=== PATIENT | male | born 1965 | race Caucasian/White ===

== ENCOUNTER 2018-04-25 11:44 | Inpatient (IN) | payer OTHER ==
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
[2018-04-25] MEDS ORDERED: IBUPROFEN 400 MG TABLET (FP) PO ONE (12:16)
--- NOTE | 2018-04-25 12:25 | PDOC ---
Attending Attestation - HPI HPI: 04/25/18 12:30 The patient is a 53 year old male, with a significant past medical history of left hemiparesis s/p TBI, frequent falls (last fall on 04/09/18), depression, who presents to the emergency department with elbow pain this morning. He denies any trauma or falls. He denies swelling or bruising. He states he can range thew elbow, but reports pain when he uses his cane. The patient denies chest pain, shortness of breath, headache and dizziness. The patient denies fever, chills, nausea, vomit, diarrhea and constipation. The patient denies dysuria, frequency, urgency and hematuria. Allergies: NKDA PCP - Dr. Pedrito Vyas - Physicial Exam PE: 04/25/18 12:30 GENERAL: The patient is in no acute distress. HEAD: Normal with no signs of trauma. EYES: PERRLA, EOMI, sclera anicteric, conjunctiva clear. ENT: Ears normal, nares patent, oropharynx clear without exudates. Moist mucous membranes. NECK: Normal range of motion, supple without lymphadenopathy, JVD, or masses. LUNGS: Breath sounds equal, clear to auscultation bilaterally. No wheezes, and no crackles. HEART:Regular rate and rhythm, normal S1 and S2 without murmur, rub or gallop. ABDOMEN: Soft, nontender, normoactive bowel sounds. No guarding, no rebound. No masses palpable. EXTREMITIES: Normal range of motion, no edema. No clubbing or cyanosis. No erythema, or tenderness. NEUROLOGICAL: Cranial nerves II through XII grossly intact. Normal speech. No focal neurological deficits. MUSCULOSKELETAL: (+) right elbow pain at the end of extension, mild lateral epicondyle ttp. No swelling or erythema. Back non-tender to palpation, no CVA tenderness. No joint edema. SKIN: Warm, Dry, normal turgor, no rashes or lesions noted. - Medical Decision Making 04/25/18 12:30 Documentation prepared by Tamra Soto, acting as biomedical engineer for Evelin David MD <Tamra Soto - Last Filed: 04/25/18 12:48> - Resident Resident Name: Carter Estrella - ED Attending Attestation I have performed the following: I have examined & evaluated the patient, The case was reviewed & discussed with the resident, I agree w/resident's findings & plan, Exceptions are as noted - Medical Decision Making 04/25/18 15:57 Xray, no occult fracture Pt seen by Ortho Will discharge to home Follow up with Ortho as an outpatient 04/25/18 17:50 Pt refusing to leave the hospital Pt girlfriend called, yelled at nurse stating that the patient can not be sent home because he is having frequent falls and no longer can ambulate with his cane given his right elbow pain Will contact PMD PT referral EKG - Twelve-lead EKG was performed and reviewed by me. There is normal sinus rhythm with a normal rate. The axis is normal. The intervals are normal. There are no ST or T wave abnormalities. Impression: Normal twelve-lead EKG 04/25/18 18:35 Laboratory Tests 04/25/18 17:47 WBC 8.0 Hgb 14.6 Hct 40.2 Plt Count 219 Pt placed on observation to Dr Price PT eval? <Evelin David - Last Filed: 04/27/18 07:46>
[2018-04-25] MEDS ORDERED: KETOROLAC TROMETHAMINE 30 MG/1 ML VIAL IM ONE (13:50)
[2018-04-25] MEDS ORDERED: KETOROLAC TROMETHAMINE 30 MG/1 ML VIAL ONE (14:15)
--- NOTE | 2018-04-25 15:58 | CONSULT ---
Consult - text type - Consultation Consultation Note: ORTHOPEDIC SURGERY CONSULTATION NOTE Department of Orthopedic Surgery HISTORY OF PRESENT ILLNESS Gideon Higuera is a 53 year old male with a history of TBI (1998) an left sided hemiparesis who presents to [facility] ED after multiple falls. The orthopedic service was consulted for right elbow pain. The patient states he has had multiple falls, most recently a week ago. The patient notes sharp pain to his right elbow. Denies any other injuries. Denies numbness, tingling or other constitutional complaints. Denies tobacco use, drug use, alcohol abuse. The patient lives alone and uses cane to ambulate at baseline. FAMILY HISTORY Unknown REVIEW OF SYMPTOMS A twelve-point review of systems was performed and was negative except as noted in HPI. PHYSICAL EXAM Constitutional: Alert and oriented to person, place, and time. Right Upper Extremity: Skin warm, dry, and intact; no lesions, rashes or ulcers noted. No atrophy noted. No masses or effusions noted. Mild tenderness to palpation laterally over extensor muscle tendons; nontender throughout rest of extremity. Full passive and active ROM, free from pain. Joints stable with no pathologic laxity. M/R/U/MSK/AX motor intact; SILT distally except for some numbness in his right index finger tip; 2+ radial pulses; Cap refill brisk. Left Upper Extremity: No tenderness to palpation. Limited range of motion of shoulder, elbow, wrist and fingers, free from pain. SILT distally; 2+ radial pulses; Cap refill brisk. Right Lower Extremity: No tenderness to palpation. No cords or calf tenderness. No significant calf/ankle edema. Full passive and active ROM, free from pain. EHL/TA/GS motor intact; SILT distally; 2+ DP pulses; Cap refill brisk. Left Lower Extremity: No tenderness to palpation. Limited range of motion of shoulder, elbow, wrist and fingers, free from pain. SILT distally; 2+ radial pulses; Cap refill brisk. 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 They demonstrate no fracture or dislocation. ASSESSMENT AND PLAN Gideon Higuera is a 53 year old male with history of TBI and left sided hemiparesis presenting with right sided elbow pain. We have reviewed the imaging and clinical findings in detail, as well as their potential implications. His pain is likely due to a muscle strain. There is no fracture or pathologic laxity on exam. No acute orthopedic intervention at this time. We can obtain further imaging as an outpatient if symptoms persist. All questions were answered. Thank you for involving our team in the care of this patient. Please have patient follow up in our office in 1-2 weeks [phone]. Hernandez Montemayor, DO Orthopedic Surgery
[2018-04-25 18:00] LABS: BASO % 0.7 % (0-2.0); EOS % 1.4 % (0-4.5); HEMATOCRIT 40.2 % (35.4-49); HEMOGLOBIN 14.6 GM/dL (11.7-16.9); LYMPH % 19.6 % (8-40); MCH 32.9 pg (25.7-33.7); MCHC 36.4 g/dl (32.0-35.9); MEAN CELL VOLUME 90.6 fl (80-96); MEAN PLT VOLUME 7.8 fl (7.5-11.1); MONO % 5.1 % (3.8-10.2); NEUT % 73.2 % (42.8-82.8); PLATELET COUNT 219 K/MM3 (134-434); RBC 4.43 M/mm3 (4.00-5.60); RDW 12.7 % (11.9-15.9)
[2018-04-25 19:14] LABS: ALBUMIN 3.7 g/dl (3.4-5.0); ALK PHOS 62 U/L (45-117); ANION GAP 7 MMOL/L (8-16); BILIRUBIN,TOTAL 0.8 mg/dL (0.2-1); BLOOD UREA NITROGEN 16 mg/dL (7-18); CALCIUM 8.7 mg/dL (8.5-10.1); CHLORIDE 112 mmol/L (98-107); CO2 25 mmol/L (21-32); CREATININE 1.1 mg/dL (0.55-1.3); GLUCOSE,RANDOM 95 mg/dL (74-106); POTASSIUM 3.9 mmol/L (3.5-5.1); SGOT/AST 18 U/L (15-37); SGPT/ALT 30 U/L (13-61); SODIUM 143 mmol/L (136-145); TOT PROT 6.6 g/dl (6.4-8.2)
[2018-04-26 01:17] VITALS: BMI 30.3
[2018-04-26] MEDS: KETOROLAC TROMETHAMINE 30 MG/1 ML VIAL IVPUSH SCH ×3 (02:19→17:05)
[2018-04-26] MEDS: BACLOFEN 10 MG TABLET (FP) PO SCH ×3 (05:29→21:33)
[2018-04-26] MEDS: PARoxetine HCL 20 MG TABLET (FP) PO SCH (09:45)
[2018-04-26] MEDS: HEPARIN NA (PORCINE) 5,000 UNITS/ML 1ML VIAL SQ SCH ×2 (09:46→21:33)
[2018-04-26] MEDS: diazePAM 5 MG TABLET PO PRN (09:53)
--- NOTE | 2018-04-26 13:04 | HP ---
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) Cardiovascular: Yes: Hyperlipdemia - Smoking History Smoking history: Never smoked Have you smoked in the past 12 months: No Aproximately how many cigarettes per day: 0 - Alcohol/Substance Use Hx Alcohol Use: No Home Medications - Allergies Allergies/Adverse Reactions: Allergies Allergy/AdvReac Type Severity Reaction Status Date / Time No Known Allergies Allergy Verified 04/25/18 12:14 - Home Medications Home Medications: Ambulatory Orders Atorvastatin Ca [Lipitor] 20 mg PO HS 03/25/15 Baclofen 10 mg PO TID 03/25/15 Divalproex [Depakote -] 125 mg PO HS 03/25/15 Paroxetine HCl [Paxil] 20 mg PO DAILY 03/25/15 Diazepam [Valium -] 5 mg PO BID PRN #14 tablet 03/31/15 Donepezil HCl [Aricept] 10 mg PO HS 04/26/18 Family Disease History - Family Disease History Family Disease History: Other: Father ( h/o alcoholism) Physical Examination Vital Signs: Vital Signs Temperature 99 F 04/26/18 09:00 Pulse Rate 56 L 04/26/18 09:00 Respiratory Rate 20 04/26/18 09:00 Blood Pressure 123/74 04/26/18 09:00 O2 Sat by Pulse Oximetry (%) 98 04/26/18 01:10 Labs: CBC, BMP 04/25/18 17:47 04/25/18 17:47
--- NOTE | 2018-04-26 16:19 | EKG ---
Test Reason : Blood Pressure : / mmHG Vent. Rate : 061 BPM Atrial Rate : 061 BPM P-R Int : 148 ms QRS Dur : 096 ms QT Int : 400 ms P-R-T Axes : 026 -25 011 degrees QTc Int : 402 ms POOR DATA QUALITY, INTERPRETATION MAY BE ADVERSELY AFFECTED NORMAL SINUS RHYTHM NORMAL ECG WHEN COMPARED WITH ECG OF 26-MAR-2015 00:29, NO SIGNIFICANT CHANGE WAS FOUND Confirmed by KRYS WELLINGTON, FREDI ([id number]) on 04/26/2018 4:19:26 PM Referred By: Confirmed By:FREDI MARCANO MD
[2018-04-26] MEDS ORDERED: PT OWN MED DRAWER 7, Y5N ONE (21:13)
[2018-04-26] MEDS: DONEPEZIL HCL 10 MG TABLET (FP) PO SCH (21:33)
[2018-04-26] MEDS: DIVALPROEX SODIUM 125 MG TABLET E.C. PO SCH (21:33)
[2018-04-26] MEDS: ATORVASTATIN CA 20 MG TABLET (FP) PO SCH (21:33)
--- NOTE | 2018-04-26 21:41 | PN ---
Progress Note (short form) - Note Progress Note: ORTHOPEDIC SURGERY PROGRESS NOTE Department of Orthopedic Surgery SUBJECTIVE No acute events overnight. Complains of right elbow pain. Denies chest pain, shortness of breath, or calf pain. No nausea or vomiting. Tolerating oral intake. Pain control improving. Intake & Output 04/24/18 04/25/18 04/26/18 23:59 23:59 23:59 Intake Total 870 Output Total 500 Balance 370 Intake: Oral 870 Output: Urine 500 Void 500 Other: Voiding Method Urinal Bowel Movement No # Bowel Movements 0 Weight 214 lb 211 lb 4 oz Height 5 ft 10 in 5 ft 10 in Body Mass Index (BMI) 30.7 30.3 Weight Measurement Method Built in [facility] Active Medications Generic Name Dose Route Start Last Admin Trade Name Freq PRN Reason Stop Dose Admin Atorvastatin Calcium 20 mg 04/26/18 22:00 04/26/18 21:33 Lipitor - PO 20 mg HS JULY Administration Baclofen 10 mg 04/26/18 06:00 04/26/18 21:33 Lioresal - PO 10 mg TID JULY Administration Diazepam 5 mg 04/26/18 01:46 04/26/18 09:53 Valium - PO 5 mg Q12H PRN Administration MUSCLE SPASMS Divalproex Sodium 125 mg 04/26/18 22:00 04/26/18 21:33 Depakote - PO 125 mg HS JULY Administration Donepezil HCl 10 mg 04/26/18 22:00 04/26/18 21:33 Aricept - PO 10 mg HS JULY Administration Heparin Sodium (Porcine) 5,000 unit 04/26/18 10:00 04/26/18 21:33 Heparin - SQ 5,000 unit BID JULY Administration Ketorolac Tromethamine 30 mg 04/26/18 02:00 04/26/18 17:05 Toradol Injection - IVPUSH 05/01/18 01:59 30 mg Q8H-IV JULY Administration Paroxetine HCl 20 mg 04/26/18 10:00 04/26/18 09:45 Paxil - PO 20 mg DAILY JULY Administration Vital Signs (last) Temp Pulse Resp BP Pulse Ox 98.3 F 58 L 19 101/54 L 98 04/26/18 18:00 04/26/18 18:00 04/26/18 18:00 04/26/18 18:00 04/26/18 01:10 Laboratory 04/25/18 17:47 04/25/18 17:47 PHYSICAL EXAMINATION General: Alert, oriented, cooperative and no distress. Right Upper Extremity: Skin intact, no lesions, rashes or ulcers noted. Muscle mass equal and symmetric to contralateral side. No atrophy noted. No masses or effusions noted. Tenderness over lateral elbow extensor origin. Full passive and active ROM, free from pain. M/R/U/MSK/AX motor intact; SILT distally except for numbness over index finger tip; 2+ radial pulses; Cap refill brisk. DVT Exam: No evidence of DVT seen on physical exam; No cords or calf tenderness ; No significant calf/ankle edema. ASSESSMENT AND PLAN Gideon Higuera is a 53 year old male with history of TBI and left sided hemiparesis presenting with right sided elbow pain. His pain is likely due to a muscle strain or overuse injury. There is no fracture or pathologic laxity on exam. - No acute orthopedic intervention at this time. We can obtain further imaging as an outpatient if symptoms persist. - Recommend he follow up with neurologist as outpatient to evaluate right index finger numbness. He has no signs of carpal tunnel syndrome. - Physical therapy - DVT prophylaxis - Pain control All questions were answered. Thank you for involving our team in the care of this patient. Please have patient follow up in our office in 1-2 weeks [phone]. Hernandez Montemayor, DO Orthopedic Surgery
[2018-04-27] MEDS: KETOROLAC TROMETHAMINE 30 MG/1 ML VIAL IVPUSH SCH ×3 (02:03→18:48)
[2018-04-27] MEDS: diazePAM 5 MG TABLET PO PRN (04:24)
[2018-04-27] MEDS: BACLOFEN 10 MG TABLET (FP) PO SCH ×3 (06:45→21:51)
[2018-04-27 07:37] LABS: BASO % 0.7 % (0-2.0); EOS % 2.2 % (0-4.5); HEMATOCRIT 42.9 % (35.4-49); HEMOGLOBIN 14.5 GM/dL (11.7-16.9); LYMPH % 33.8 % (8-40); MCH 30.6 pg (25.7-33.7); MCHC 33.8 g/dl (32.0-35.9); MEAN CELL VOLUME 90.7 fl (80-96); MEAN PLT VOLUME 7.7 fl (7.5-11.1); MONO % 7.8 % (3.8-10.2); NEUT % 55.5 % (42.8-82.8); PLATELET COUNT 197 K/MM3 (134-434); RBC 4.73 M/mm3 (4.00-5.60); RDW 12.9 % (11.9-15.9)
[2018-04-27 08:02] LABS: ALBUMIN 3.6 g/dl (3.4-5.0); ALK PHOS 62 U/L (45-117); ANION GAP 7 MMOL/L (8-16); BILIRUBIN,TOTAL 0.7 mg/dL (0.2-1); BLOOD UREA NITROGEN 26 mg/dL (7-18); CALCIUM 8.8 mg/dL (8.5-10.1); CHLORIDE 110 mmol/L (98-107); CO2 26 mmol/L (21-32); GLUCOSE,RANDOM 85 mg/dL (74-106); POTASSIUM 4.1 mmol/L (3.5-5.1); SGOT/AST 16 U/L (15-37); SGPT/ALT 31 U/L (13-61); SODIUM 143 mmol/L (136-145); TOT PROT 6.7 g/dl (6.4-8.2)
[2018-04-27] MEDS: HEPARIN NA (PORCINE) 5,000 UNITS/ML 1ML VIAL SQ SCH ×2 (10:04→21:51)
[2018-04-27] MEDS: PARoxetine HCL 20 MG TABLET (FP) PO SCH (10:04)
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
--- NOTE | 2018-04-27 19:27 | PN ---
Progress Note, Physician - Current Medication List Current Medications: Active Medications Atorvastatin Calcium (Lipitor -) 20 mg PO HS [facility] Last Admin: 04/26/18 21:33 Dose: 20 mg Baclofen (Lioresal -) 10 mg PO TID [facility] Last Admin: 04/27/18 14:18 Dose: 10 mg Diazepam (Valium -) 5 mg PO Q12H PRN PRN Reason: MUSCLE SPASMS Last Admin: 04/27/18 04:24 Dose: 5 mg Divalproex Sodium (Depakote -) 125 mg PO HS [facility] Last Admin: 04/26/18 21:33 Dose: 125 mg Donepezil HCl (Aricept -) 10 mg PO HS [facility] Last Admin: 04/26/18 21:33 Dose: 10 mg Heparin Sodium (Porcine) (Heparin -) 5,000 unit SQ BID [facility] Last Admin: 04/27/18 10:04 Dose: 5,000 unit Ketorolac Tromethamine (Toradol Injection -) 30 mg IVPUSH Q8H-IV [facility] Stop: 05/01/18 01:59 Last Admin: 04/27/18 18:48 Dose: 30 mg Paroxetine HCl (Paxil -) 20 mg PO DAILY [facility] Last Admin: 04/27/18 10:04 Dose: 20 mg - Objective Vital Signs: Vital Signs Temperature 98.1 F 04/27/18 14:00 Pulse Rate 62 04/27/18 14:00 Respiratory Rate 18 04/27/18 14:00 Blood Pressure 112/55 L 04/27/18 14:00 O2 Sat by Pulse Oximetry (%) 98 04/27/18 08:00 Labs: CBC, BMP 04/27/18 06:30 04/27/18 06:30
[2018-04-27] MEDS ORDERED: PT OWN MED DRAWER 7, Y5N ONE (21:47)
[2018-04-27] MEDS: ATORVASTATIN CA 20 MG TABLET (FP) PO SCH (21:51)
[2018-04-27] MEDS: DIVALPROEX SODIUM 125 MG TABLET E.C. PO SCH (21:52)
[2018-04-27] MEDS: DONEPEZIL HCL 10 MG TABLET (FP) PO SCH (21:52)
[2018-04-28] MEDS: KETOROLAC TROMETHAMINE 30 MG/1 ML VIAL IVPUSH SCH ×3 (02:21→18:42)
[2018-04-28] MEDS: BACLOFEN 10 MG TABLET (FP) PO SCH ×3 (06:30→21:30)
[2018-04-28] MEDS: diazePAM 5 MG TABLET PO PRN (06:38)
[2018-04-28] MEDS: PARoxetine HCL 20 MG TABLET (FP) PO SCH (09:12)
[2018-04-28] MEDS: HEPARIN NA (PORCINE) 5,000 UNITS/ML 1ML VIAL SQ SCH ×2 (09:12→21:30)
--- NOTE | 2018-04-28 15:27 | PN ---
Progress Note (short form) - Note Progress Note: ORTHOPEDIC SURGERY PROGRESS NOTE Department of Orthopedic Surgery SUBJECTIVE No acute events overnight. No complaints. Denies chest pain, shortness of breath , or calf pain. No nausea or vomiting. Tolerating oral intake. Pain control improving. Intake & Output 04/26/18 04/27/18 04/28/18 23:59 23:59 23:59 Intake Total 870 950 Output Total 500 800 Balance 370 150 Intake: Oral 870 950 Output: Urine 500 800 Void 500 800 Other: Voiding Method Urinal Urinal Urinal Bowel Movement No Yes # Bowel Movements 0 0 Weight 211 lb 4 oz Height 5 ft 10 in Body Mass Index (BMI) 30.3 Weight Measurement Method [facility] Active Medications Generic Name Dose Route Start Last Admin Trade Name Freq PRN Reason Stop Dose Admin Atorvastatin Calcium 20 mg 04/26/18 22:00 04/27/18 21:51 Lipitor - PO 20 mg HS JULY Administration Baclofen 10 mg 04/26/18 06:00 04/28/18 14:09 Lioresal - PO 10 mg TID JULY Administration Diazepam 5 mg 04/26/18 01:46 04/28/18 06:38 Valium - PO 5 mg Q12H PRN Administration MUSCLE SPASMS Divalproex Sodium 125 mg 04/26/18 22:00 04/27/18 21:52 Depakote - PO 125 mg HS JULY Administration Donepezil HCl 10 mg 04/26/18 22:00 04/27/18 21:52 Aricept - PO 10 mg HS JULY Administration Heparin Sodium (Porcine) 5,000 unit 04/26/18 10:00 04/28/18 09:12 Heparin - SQ 5,000 unit BID JULY Administration Ketorolac Tromethamine 30 mg 04/26/18 02:00 04/28/18 09:59 Toradol Injection - IVPUSH 05/01/18 01:59 30 mg Q8H-IV JULY Administration Paroxetine HCl 20 mg 04/26/18 10:00 04/28/18 09:12 Paxil - PO 20 mg DAILY JULY Administration Vital Signs (last) Temp Pulse Resp BP Pulse Ox 98.2 F 62 16 102/62 98 04/28/18 08:15 04/28/18 08:15 04/28/18 08:15 04/28/18 08:15 04/28/18 09:00 Laboratory 04/27/18 06:30 04/27/18 06:30 PHYSICAL EXAMINATION General: Alert, oriented, cooperative and no distress. Cervical Spine: + tenderness to palpation right paracervical muscles and trapezius. Pain with rotation to the right. Right Upper Extremity: Skin intact, no lesions, rashes or ulcers noted. Muscle mass equal and symmetric to contralateral side. No atrophy noted. No masses or effusions noted. Tenderness over lateral elbow extensor origin. Also has tenderness over right trapezius. Full passive and active ROM, free from pain. M/ R/U/MSK/AX motor intact; SILT distally except for numbness over index finger tip ; 2+ radial pulses; Cap refill brisk. DVT Exam: No evidence of DVT seen on physical exam; No cords or calf tenderness ; No significant calf/ankle edema. ASSESSMENT AND PLAN Gideon Higuera is a 53 year old male with history of TBI and left sided hemiparesis presenting with right sided neck and elbow pain. His pain is likely due to a muscle strain or overuse injury. There is no fracture or pathologic laxity on exam. - Appreciate neurology consult. The patient will obtain further testing and follow up with neurology as outpatient. - No acute orthopedic intervention at this time. Etiology of his pain is likely cervical in nature. Can obtain further imaging of elbow as outpatient if symptoms persist. - Physical therapy - DVT prophylaxis - Pain control All questions were answered. Thank you for involving our team in the care of this patient. Please have patient follow up in our office in 1-2 weeks . Hernandez Montemayor, DO Orthopedic Surgery
--- NOTE | 2018-04-28 18:12 | PN ---
Progress Note, Physician - Current Medication List Current Medications: Active Medications Atorvastatin Calcium (Lipitor -) 20 mg PO HS [facility] Last Admin: 04/27/18 21:51 Dose: 20 mg Baclofen (Lioresal -) 10 mg PO TID [facility] Last Admin: 04/28/18 14:09 Dose: 10 mg Diazepam (Valium -) 5 mg PO Q12H PRN PRN Reason: MUSCLE SPASMS Last Admin: 04/28/18 06:38 Dose: 5 mg Divalproex Sodium (Depakote -) 125 mg PO HS [facility] Last Admin: 04/27/18 21:52 Dose: 125 mg Donepezil HCl (Aricept -) 10 mg PO HS [facility] Last Admin: 04/27/18 21:52 Dose: 10 mg Heparin Sodium (Porcine) (Heparin -) 5,000 unit SQ BID [facility] Last Admin: 04/28/18 09:12 Dose: 5,000 unit Ketorolac Tromethamine (Toradol Injection -) 30 mg IVPUSH Q8H-IV [facility] Stop: 05/01/18 01:59 Last Admin: 04/28/18 09:59 Dose: 30 mg Paroxetine HCl (Paxil -) 20 mg PO DAILY [facility] Last Admin: 04/28/18 09:12 Dose: 20 mg - Objective Vital Signs: Vital Signs Temperature 98.7 F 04/28/18 15:24 Pulse Rate 64 04/28/18 15:24 Respiratory Rate 20 04/28/18 15:24 Blood Pressure 108/59 L 04/28/18 15:24 O2 Sat by Pulse Oximetry (%) 98 04/28/18 09:00 Labs: CBC, BMP 04/27/18 06:30 04/27/18 06:30
[2018-04-28] MEDS ORDERED: PT OWN MED DRAWER 7, Y5N ONE (21:19)
[2018-04-28] MEDS: DONEPEZIL HCL 10 MG TABLET (FP) PO SCH (21:28)
[2018-04-28] MEDS: DIVALPROEX SODIUM 125 MG TABLET E.C. PO SCH (21:29)
[2018-04-28] MEDS: ATORVASTATIN CA 20 MG TABLET (FP) PO SCH (21:31)
[2018-04-28] MEDS ORDERED: ACETAMINOPHEN 325 MG TABLET (FP) PO ONE (23:00)
[2018-04-29] MEDS: KETOROLAC TROMETHAMINE 30 MG/1 ML VIAL IVPUSH SCH ×3 (01:27→17:45)
[2018-04-29] MEDS: BACLOFEN 10 MG TABLET (FP) PO SCH ×3 (05:28→21:24)
[2018-04-29] MEDS: HEPARIN NA (PORCINE) 5,000 UNITS/ML 1ML VIAL SQ SCH ×2 (09:16→21:24)
[2018-04-29] MEDS: PARoxetine HCL 20 MG TABLET (FP) PO SCH (09:17)
[2018-04-29] MEDS ORDERED: diazePAM 5 MG TABLET PO PRN (12:42)
[2018-04-29] MEDS ORDERED: PT OWN MED DRAWER 7, Y5N ONE (21:13)
[2018-04-29] MEDS: DIVALPROEX SODIUM 125 MG TABLET E.C. PO SCH (21:24)
[2018-04-29] MEDS: ATORVASTATIN CA 20 MG TABLET (FP) PO SCH (21:24)
[2018-04-29] MEDS: DONEPEZIL HCL 10 MG TABLET (FP) PO SCH (21:24)
--- NOTE | 2018-04-29 23:37 | PN ---
Progress Note, Physician History of Present Illness: No new complaints - Current Medication List Current Medications: Active Medications Atorvastatin Calcium (Lipitor -) 20 mg PO HS [facility] Last Admin: 04/29/18 21:24 Dose: 20 mg Baclofen (Lioresal -) 10 mg PO TID [facility] Last Admin: 04/29/18 21:24 Dose: 10 mg Diazepam (Valium -) 5 mg PO Q12H PRN PRN Reason: MUSCLE SPASMS Last Admin: 04/29/18 23:20 Dose: 5 mg Divalproex Sodium (Depakote -) 125 mg PO HS [facility] Last Admin: 04/29/18 21:24 Dose: 125 mg Donepezil HCl (Aricept -) 10 mg PO HS [facility] Last Admin: 04/29/18 21:24 Dose: 10 mg Heparin Sodium (Porcine) (Heparin -) 5,000 unit SQ BID [facility] Last Admin: 04/29/18 21:24 Dose: 5,000 unit Ketorolac Tromethamine (Toradol Injection -) 30 mg IVPUSH Q8H-IV [facility] Stop: 05/01/18 01:59 Last Admin: 04/29/18 17:45 Dose: 30 mg Paroxetine HCl (Paxil -) 20 mg PO DAILY [facility] Last Admin: 04/29/18 09:17 Dose: 20 mg - Objective Vital Signs: Vital Signs Temperature 97.6 F 04/29/18 19:26 Pulse Rate 63 04/29/18 19:26 Respiratory Rate 18 04/29/18 21:00 Blood Pressure 117/36 L 04/29/18 19:26 O2 Sat by Pulse Oximetry (%) 98 04/29/18 21:00 Constitutional: Yes: Well Nourished Neck: Yes: WNL, Supple Cardiovascular: Yes: WNL, Regular Rate and Rhythm Respiratory: Yes: WNL, Regular, CTA Bilaterally Gastrointestinal: Yes: WNL, Normal Bowel Sounds, Soft Extremities: Yes: Other (Limited ROM of RUE Lt ankle contracture) Labs: CBC, BMP 04/27/18 06:30 04/27/18 06:30 Problem List - Problems (1) Elbow pain, right Assessment/Plan: Needs rehab DC planning for am Code(s): M25.521 - PAIN IN RIGHT ELBOW (2) Unsteady gait Assessment/Plan: ?cervical myelopathy MRI c-spine bulging discs c- spine MRI brain no acute changes Code(s): R26.81 - UNSTEADINESS ON FEET (3) TBI (traumatic brain injury) Assessment/Plan: Residual lt hemiparesis Code(s): S06.9X9A - UNSP INTRACRANIAL INJURY W LOC OF UNSP DURATION, INIT (4) HLD (hyperlipidemia) Assessment/Plan: Cont lipitor Code(s): E78.5 - HYPERLIPIDEMIA, UNSPECIFIED (5) Unable to ambulate Code(s): R26.2 - DIFFICULTY IN WALKING, NOT ELSEWHERE CLASSIFIED
[2018-04-30] MEDS: KETOROLAC TROMETHAMINE 30 MG/1 ML VIAL IVPUSH SCH ×3 (02:45→18:42)
[2018-04-30] MEDS: BACLOFEN 10 MG TABLET (FP) PO SCH ×3 (06:24→21:46)
[2018-04-30] MEDS: HEPARIN NA (PORCINE) 5,000 UNITS/ML 1ML VIAL SQ SCH ×2 (09:48→21:46)
[2018-04-30] MEDS: PARoxetine HCL 20 MG TABLET (FP) PO SCH (09:48)
[2018-04-30] MEDS ORDERED: PT OWN MED DRAWER 7, Y5N ONE (21:42)
[2018-04-30] MEDS: DIVALPROEX SODIUM 125 MG TABLET E.C. PO SCH (21:46)
[2018-04-30] MEDS: ATORVASTATIN CA 20 MG TABLET (FP) PO SCH (21:46)
[2018-04-30] MEDS: DONEPEZIL HCL 10 MG TABLET (FP) PO SCH (21:46)
--- NOTE | 2018-04-30 21:57 | PN ---
Progress Note (short form) - Note Progress Note: NEUROLOGY PROGRESS: Events and MRI images reviewed and discussed with Patient. MRI of Brain show old right frontal and Bitemporal encephalomalacia c/w old trauma. MRI of C-Spine shows min DJD without cord compression. Exam: Unchanged Spastic left hemiparesis. Reduced MAGGIE's L >>>>>R with some cogwheel rigidity on the right. Brisk reflexes L >>>>>R. Bilateral Babinskis. IMP: S/P head injury with chronic B/L cerebral dysfunction (R>>>>>>L) and spastic left hemipresis. Possible, early extrapyramidal finding on the right. Suggest: Agree with PT/rehab placement Continue baclofen 10 TID D/C depakote 125 mg Unsure of role of Donepezil. THank you very much, Wilfred Martinez MD
--- NOTE | 2018-04-30 23:34 | PN ---
Progress Note, Physician - Current Medication List Current Medications: Active Medications Atorvastatin Calcium (Lipitor -) 20 mg PO HS [facility] Last Admin: 04/30/18 21:46 Dose: 20 mg Baclofen (Lioresal -) 10 mg PO TID [facility] Last Admin: 04/30/18 21:46 Dose: 10 mg Diazepam (Valium -) 5 mg PO Q12H PRN PRN Reason: MUSCLE SPASMS Last Admin: 04/29/18 23:20 Dose: 5 mg Divalproex Sodium (Depakote -) 125 mg PO [facility] Last Admin: 04/30/18 21:46 Dose: 125 mg Donepezil HCl (Aricept -) 10 mg PO HS [facility] Last Admin: 04/30/18 21:46 Dose: 10 mg Heparin Sodium (Porcine) (Heparin -) 5,000 unit SQ BID [facility] Last Admin: 04/30/18 21:46 Dose: 5,000 unit Ketorolac Tromethamine (Toradol Injection -) 30 mg IVPUSH Q8H-IV [facility] Stop: 05/01/18 01:59 Last Admin: 04/30/18 18:42 Dose: 30 mg Paroxetine HCl (Paxil -) 20 mg PO DAILY [facility] Last Admin: 04/30/18 09:48 Dose: 20 mg - Objective Vital Signs: Vital Signs Temperature 98 F 04/30/18 20:03 Pulse Rate 57 L 04/30/18 20:03 Respiratory Rate 20 04/30/18 20:03 Blood Pressure 123/65 04/30/18 20:03 O2 Sat by Pulse Oximetry (%) 98 04/30/18 09:00 Constitutional: Yes: Well Nourished Neck: Yes: WNL, Supple Cardiovascular: Yes: WNL, Regular Rate and Rhythm Respiratory: Yes: WNL, Regular, CTA Bilaterally Gastrointestinal: Yes: WNL, Normal Bowel Sounds, Soft Labs: CBC, BMP 04/27/18 06:30 04/27/18 06:30 Problem List - Problems (1) Elbow pain, right Assessment/Plan: Needs rehab DC planning for am Code(s): M25.521 - PAIN IN RIGHT ELBOW (2) Unsteady gait Assessment/Plan: ?cervical myelopathy MRI c-spine bulging discs c- spine MRI brain no acute changes Code(s): R26.81 - UNSTEADINESS ON FEET (3) TBI (traumatic brain injury) Assessment/Plan: Residual lt hemiparesis Code(s): S06.9X9A - UNSP INTRACRANIAL INJURY W LOC OF UNSP DURATION, INIT (4) HLD (hyperlipidemia) Assessment/Plan: Cont lipitor Code(s): E78.5 - HYPERLIPIDEMIA, UNSPECIFIED (5) Unable to ambulate Code(s): R26.2 - DIFFICULTY IN WALKING, NOT ELSEWHERE CLASSIFIED
[2018-05-01] MEDS: KETOROLAC TROMETHAMINE 30 MG/1 ML VIAL IVPUSH SCH ×2 (02:49→09:48)
[2018-05-01] MEDS: BACLOFEN 10 MG TABLET (FP) PO SCH ×2 (06:31→13:50)
[2018-05-01] MEDS: HEPARIN NA (PORCINE) 5,000 UNITS/ML 1ML VIAL SQ SCH (09:47)
[2018-05-01] MEDS: PARoxetine HCL 20 MG TABLET (FP) PO SCH (09:47)
--- NOTE | 2018-05-01 11:29 | DS ---
Physical Examination Vital Signs: Vital Signs Temperature 98.2 F 05/01/18 06:02 Pulse Rate 61 05/01/18 06:02 Respiratory Rate 20 05/01/18 06:02 Blood Pressure 113/62 05/01/18 06:02 O2 Sat by Pulse Oximetry (%) 98 04/30/18 21:00 Constitutional: Yes: Well Nourished Neck: Yes: WNL Cardiovascular: Yes: WNL, Regular Rate and Rhythm Respiratory: Yes: WNL, Regular, CTA Bilaterally Gastrointestinal: Yes: WNL, Normal Bowel Sounds, Soft Extremities: Yes: Other (Pain of movement of Rt elbow) Labs: CBC, BMP 04/27/18 06:30 04/27/18 06:30 Discharge Summary Reason For Visit: RIGHT ELBOW PAIN/UNABLE TO WALK Current Active Problems Elbow pain, right (Acute) HLD (hyperlipidemia) (Acute) TBI (traumatic brain injury) (Acute) Unable to ambulate (Acute) Unsteady gait (Acute) Hospital Course: Mr. Higuera is a 53 yo male w/ pmh of HLD, depression, distant TBI w/ Left sided hemiparesis, and chronic back pain who presents for evaluation of 2 day history of right elbow pain. Patient reports he often falls given unstable gait with his cane however reports last fall and had no pain after this. Pain started yesterday and is felt only while axially loading while using his cane. Denies any difficulty moving his arm or other complaints. Pt was seen by ortho and neuro. Pt had MRI C-cervical spine wc showed disc bulging of C3-C4 and C5- C6 and MRI brain was also done wc did not show any acute pathology. Xray of Rt elbow did not show any acute pathology. Pt unable to ambulate bc of pain of rt shoulder and unable to use his cane and needs rehab. Condition: Good - Instructions Diet, Activity, Other Instructions: Regular diet Referrals: Hernandez Montemayor DO [Staff Physician] - Pedrito Vyas MD [Primary Care Provider] - Disposition: [facility]-WAY FACILITY - Home Medications Comprehensive Discharge Medication List: Ambulatory Orders Atorvastatin Ca [Lipitor] 20 mg PO HS 03/25/15 Baclofen 10 mg PO TID 03/25/15 Divalproex [Depakote -] 125 mg PO HS 03/25/15 Paroxetine HCl [Paxil] 20 mg PO DAILY 03/25/15 Diazepam [Valium] 5 mg PO BID PRN #14 tablet 03/31/15 Donepezil HCl [Aricept] 10 mg PO HS 04/26/18
[2018-05-01 14:25] VITALS: BP 157/71; PULSE 71; TEMP 98.1
== END 2018-05-01 15:47 | DRG 552 ==
LOC: JER 11:44 → JERBED 19:42 → J6S 04-26 00:36
PROVIDERS: ADMIT Internal Medicine; ATTEND Internal Medicine
DX: M50.21 Other cervical disc displacement, high cervical region (principal); G81.94 Hemiplegia, unspecified affecting left nondominant side; M25.521 Pain in right elbow; Z87.820 Personal history of traumatic brain injury; M54.9 Dorsalgia, unspecified; R26.2 Difficulty in walking, not elsewhere classified; E78.5 Hyperlipidemia, unspecified; R26.81 Unsteadiness on feet
CPT/HCPCS: 36415; 70551-TC; 71045-TC-FY; 72141-TC; 73070-TC-RT-FY; 80053; 85025; 93005; 93010; 97116-GP; 97162-GP; 99283-25; J0475; J1644

== ENCOUNTER 2022-07-26 13:25 | Emergency (ER) | payer OTHER ==
[2022-07-26 13:46] VITALS: BP 134/78; PULSE 74; RESP 16; TEMP 98.3; BMI 70.2
[2022-07-26] MEDS ORDERED: BACITRACIN ZINC 15 GM TUBE TOPICAL OINTMENT TP ONE (16:24)
== END 2022-07-26 19:35 | disposition home or self-care (01) ==
LOC: JERFT 13:25 → JER 13:25 → JERFT 19:35
PROC: 0HQ0XZZ Repair Scalp Skin, External Approach (ICD-10-PCS; principal; 2022-07-26)
DX: S01.01XA Laceration without foreign body of scalp, initial encounter (principal); S09.90XA Unspecified injury of head, initial encounter; W01.198A Fall on same level from slipping, tripping and stumbling with subsequent striking against other object, initial encounter
CPT/HCPCS: 70450-TC; 99284-25